=== PATIENT | male | born 1950 | race African-American/Black ===

== ENCOUNTER 2017-01-08 14:17 | Inpatient (IN) | payer MEDICAID ==
[~2017-01-08 14:17] MED LIST: ARGINAID POWDE1 EACH PO; CHOLESTYRAMIN4 G/PKT PO; CYANOCOBALAMIN SC; DIOVAN160 M1 PO; FERRO-TIME325 M1 PO; FLAGYL500 MG PO; H PO; HALOPERIDOL2 M1 PO; HYDRALAZINE HCL10 MG PO; HYDRALAZINE HCL25 MG PO; IMODIUM2 MG PO; ISOSORBIDE MONO30 M4 PO; ISOSORBIDE MONO60 M1 PO; LASIX20 M1 PO; LOMOTIL1 TA1 PO; NEURONTIN300 M1 PO; PRINIVIL40 MG PO; TENORMIN25 M1 PO; TYLENOL325 M2 PO; [UNRECOGNIZED DRUG - OTHER] PO; [UNRECOGNIZED DRUG - OTHER] PO; [UNRECOGNIZED DRUG - OTHER] PO
[2017-01-08] MEDS ORDERED: VIBRAMYCIN100 M1 PO (15:00)
[2017-01-08] MEDS ORDERED: LASIX80 M1 PO (15:01)
[2017-01-08] MEDS ORDERED: [UNRECOGNIZED DRUG - OTHER] PO (15:03)
[2017-01-08] MEDS ORDERED: BISCOLAX10 MG PR (15:04)
[2017-01-08] MEDS ORDERED: MILK OF MAGNESIA PO (15:05)
[2017-01-08] MEDS ORDERED: CYANOCOBAL1000 MCG/3 SC (15:06)
[2017-01-08 17:47] LABS: BASO % 0.1 % (0-2); EOS % 4.2 % (0-7); EOSINOPHIL ABSOLUTE COUNT 0.5 tho/cmm (0.0-0.7); HCT-HEMATOCRIT 32.2 % (36.0-53.5); HGB-HEMOGLOBIN 10.2 gm/dl (13.5-17.0); IMMATURE GRANULOCYTES ABSOLUTE 0.05 tho/cmm (0-0.03); IMMATURE GRANULOCYTES PERCENT 0.4 % (0-0.3); LYMPH % 12.8 % (20-45); LYMPH ABSOLUTE COUNT 1.6 tho/cmm (0.8-4.5); MCH (MEAN CORPUSCULAR HGB) 26.1 pg (28.0-32.0); MCHC MEAN CORPUSCULAR HGB CONC 31.7 % (32.0-36.0); MCV (MEAN CELL VOLUME) 82.4 fl (82.0-96.0); MONO % 6.9 % (0-12); MONOCYTE ABSOLUTE COUNT 0.9 tho/cmm (0.0-1.2); NEUTROPHIL ABSOLUTE COUNT 9.6 tho/cmm (1.6-8.0); NEUTROPHIL-AUTOMATED 9.6 tho/cmm (1.6-8.0); NEUTROPHILS % 75.6 % (40-80); PLATELET COUNT 276 tho/cmm (150-450); RED BLOOD COUNT 3.91 mil/cmm (4.40-5.70); RED CELL DISTRIBUTION WIDTH 15.3 % (12.4-16.4); WHITE BLOOD COUNT 12.7 tho/cmm (4.0-10.0)
[2017-01-08 18:05] LABS: ALB/GLOB RATIO 0.4 (0.8-2.0); ALBUMIN 2.4 g/dl (3.5-5.0); ALKALINE PHOSPHATASE 80 U/L (33-138); ALT/SGPT 19 U/L (12-78); ANION GAP 10 mmol/L (0-20); AST/SGOT 14 U/L (10-40); BILIRUBIN,TOTAL 0.5 mg/dl (0.0-1.5); BLOOD UREA NITROGEN 18 mg/dl (6-24); CALCIUM 8.3 mg/dl (8.5-10.5); CARBON DIOXIDE-VENOUS 28 mmol/L (22-32); CHLORIDE 105 mmol/l (96-110); CREATININE 1.13 mg/dl (0.60-1.30); GLUCOSE 111 mg/dL (70-110); POTASSIUM 3.3 mmol/L (3.7-5.1); SODIUM 140 mmol/L (135-145); eGFR VALUE FOR BLACK 77 mL/Min
[2017-01-08 18:26] LABS: PROCALCITONIN 0.08 ng/ml (0.05-0.09)
[2017-01-08 18:36] LABS: ESR-ERYTHROCYTE SED RATE 91 mm/hr (0-20)
[2017-01-09 06:18] LABS: ALB/GLOB RATIO 0.4 (0.8-2.0); ALBUMIN 2.1 g/dl (3.5-5.0); ALKALINE PHOSPHATASE 70 U/L (33-138); ALT/SGPT 15 U/L (12-78); ANION GAP 11 mmol/L (0-20); AST/SGOT 12 U/L (10-40); BILIRUBIN,TOTAL 0.3 mg/dl (0.0-1.5); BLOOD UREA NITROGEN 20 mg/dl (6-24); C-REACTIVE PROTEIN 18.2 mg/dl (0-0.9); CARBON DIOXIDE-VENOUS 29 mmol/L (22-32); CHLORIDE 105 mmol/l (96-110); GLUCOSE 109 mg/dL (70-110); MAGNESIUM 2.2 mg/dl (1.8-2.6); POTASSIUM 3.4 mmol/L (3.7-5.1); SODIUM 142 mmol/L (135-145); eGFR VALUE FOR BLACK 49 mL/Min
[2017-01-09 06:38] LABS: CREATININE 1.65 mg/dl (0.60-1.30)
[2017-01-09 06:39] LABS: PROCALCITONIN 0.17 ng/ml (0.05-0.09)
[2017-01-09 09:14] LABS: BASO % 0.2 % (0-2); EOS % 4.2 % (0-7); EOSINOPHIL ABSOLUTE COUNT 0.4 tho/cmm (0.0-0.7); HCT-HEMATOCRIT 30.5 % (36.0-53.5); HGB-HEMOGLOBIN 9.5 gm/dl (13.5-17.0); IMMATURE GRANULOCYTES ABSOLUTE 0.08 tho/cmm (0-0.03); IMMATURE GRANULOCYTES PERCENT 0.8 % (0-0.3); LYMPH % 16.3 % (20-45); LYMPH ABSOLUTE COUNT 1.7 tho/cmm (0.8-4.5); MCH (MEAN CORPUSCULAR HGB) 26.1 pg (28.0-32.0); MCHC MEAN CORPUSCULAR HGB CONC 31.1 % (32.0-36.0); MCV (MEAN CELL VOLUME) 83.8 fl (82.0-96.0); MEAN PLATELET VOLUME 11.1 cmc (9.4-12.4); MONO % 6.9 % (0-12); MONOCYTE ABSOLUTE COUNT 0.7 tho/cmm (0.0-1.2); NEUTROPHIL ABSOLUTE COUNT 7.4 tho/cmm (1.6-8.0); NEUTROPHIL-AUTOMATED 7.4 tho/cmm (1.6-8.0); NEUTROPHILS % 71.6 % (40-80); RED BLOOD COUNT 3.64 mil/cmm (4.40-5.70); RED CELL DISTRIBUTION WIDTH 15.6 % (12.4-16.4); WHITE BLOOD COUNT 10.3 tho/cmm (4.0-10.0)
[2017-01-09 09:57] LABS: ESR-ERYTHROCYTE SED RATE 80 mm/hr (0-20)
[2017-01-10 07:32] LABS: BASO % 0.2 % (0-2); EOSINOPHIL ABSOLUTE COUNT 0.5 tho/cmm (0.0-0.7); HCT-HEMATOCRIT 29.1 % (36.0-53.5); HGB-HEMOGLOBIN 8.9 gm/dl (13.5-17.0); IMMATURE GRANULOCYTES ABSOLUTE 0.04 tho/cmm (0-0.03); IMMATURE GRANULOCYTES PERCENT 0.4 % (0-0.3); LYMPH % 14.6 % (20-45); LYMPH ABSOLUTE COUNT 1.3 tho/cmm (0.8-4.5); MCH (MEAN CORPUSCULAR HGB) 25.7 pg (28.0-32.0); MCHC MEAN CORPUSCULAR HGB CONC 30.6 % (32.0-36.0); MCV (MEAN CELL VOLUME) 84.1 fl (82.0-96.0); MEAN PLATELET VOLUME 10.4 cmc (9.4-12.4); MONO % 10.3 % (0-12); MONOCYTE ABSOLUTE COUNT 0.9 tho/cmm (0.0-1.2); NEUTROPHIL ABSOLUTE COUNT 6.1 tho/cmm (1.6-8.0); NEUTROPHIL-AUTOMATED 6.1 tho/cmm (1.6-8.0); NEUTROPHILS % 68.5 % (40-80); RED BLOOD COUNT 3.46 mil/cmm (4.40-5.70); RED CELL DISTRIBUTION WIDTH 15.5 % (12.4-16.4); WHITE BLOOD COUNT 8.9 tho/cmm (4.0-10.0)
[2017-01-10 07:43] LABS: ANION GAP 8 mmol/L (0-20); BLOOD UREA NITROGEN 19 mg/dl (6-24); C-REACTIVE PROTEIN 17.9 mg/dl (0-0.9); CALCIUM 8.1 mg/dl (8.5-10.5); CARBON DIOXIDE-VENOUS 30 mmol/L (22-32); CHLORIDE 109 mmol/l (96-110); CREATININE 1.39 mg/dl (0.60-1.30); GLUCOSE 111 mg/dL (70-110); POTASSIUM 3.4 mmol/L (3.7-5.1); SODIUM 144 mmol/L (135-145); eGFR VALUE FOR BLACK 60 mL/Min
[2017-01-10 08:37] LABS: ESR-ERYTHROCYTE SED RATE 100 mm/hr (0-20)
[2017-01-11 06:36] LABS: BASO % 0.2 % (0-2); EOS % 6.8 % (0-7); EOSINOPHIL ABSOLUTE COUNT 0.6 tho/cmm (0.0-0.7); HCT-HEMATOCRIT 28.5 % (36.0-53.5); HGB-HEMOGLOBIN 8.7 gm/dl (13.5-17.0); IMMATURE GRANULOCYTES ABSOLUTE 0.06 tho/cmm (0-0.03); IMMATURE GRANULOCYTES PERCENT 0.7 % (0-0.3); LYMPH ABSOLUTE COUNT 1.2 tho/cmm (0.8-4.5); MCH (MEAN CORPUSCULAR HGB) 25.9 pg (28.0-32.0); MCHC MEAN CORPUSCULAR HGB CONC 30.5 % (32.0-36.0); MCV (MEAN CELL VOLUME) 84.8 fl (82.0-96.0); MEAN PLATELET VOLUME 8.9 cmc (9.4-12.4); MONO % 9.4 % (0-12); MONOCYTE ABSOLUTE COUNT 0.9 tho/cmm (0.0-1.2); NEUTROPHIL ABSOLUTE COUNT 6.4 tho/cmm (1.6-8.0); NEUTROPHIL-AUTOMATED 6.4 tho/cmm (1.6-8.0); NEUTROPHILS % 69.9 % (40-80); RED BLOOD COUNT 3.36 mil/cmm (4.40-5.70); RED CELL DISTRIBUTION WIDTH 15.6 % (12.4-16.4); WHITE BLOOD COUNT 9.2 tho/cmm (4.0-10.0)
[2017-01-11 06:37] LABS: PLATELET COUNT 263 tho/cmm (150-450)
[2017-01-11 06:43] LABS: ANION GAP 17 mmol/L (0-20); BLOOD UREA NITROGEN 15 mg/dl (6-24); CALCIUM 7.9 mg/dl (8.5-10.5); CARBON DIOXIDE-VENOUS 28 mmol/L (22-32); CHLORIDE 101 mmol/l (96-110); CREATININE 1.37 mg/dl (0.60-1.30); POTASSIUM 3.6 mmol/L (3.7-5.1); SODIUM 142 mmol/L (135-145); eGFR VALUE FOR BLACK 61 mL/Min
[2017-01-11 07:03] LABS: GLUCOSE 212 mg/dL (70-110)
[2017-01-11 07:19] LABS: ESR-ERYTHROCYTE SED RATE 121 mm/hr (0-20)
[2017-01-11 07:21] LABS: PROCALCITONIN 0.06 ng/ml (0.05-0.09)
[2017-01-12 03:40] LABS: BASO % 0.3 % (0-2); EOS % 7.8 % (0-7); EOSINOPHIL ABSOLUTE COUNT 0.7 tho/cmm (0.0-0.7); HCT-HEMATOCRIT 29.3 % (36.0-53.5); HGB-HEMOGLOBIN 9.1 gm/dl (13.5-17.0); IMMATURE GRANULOCYTES ABSOLUTE 0.09 tho/cmm (0-0.03); LYMPH % 17.4 % (20-45); LYMPH ABSOLUTE COUNT 1.6 tho/cmm (0.8-4.5); MCH (MEAN CORPUSCULAR HGB) 26.1 pg (28.0-32.0); MCHC MEAN CORPUSCULAR HGB CONC 31.1 % (32.0-36.0); MEAN PLATELET VOLUME 8.8 cmc (9.4-12.4); MONO % 8.5 % (0-12); MONOCYTE ABSOLUTE COUNT 0.8 tho/cmm (0.0-1.2); PLATELET COUNT 263 tho/cmm (150-450); RED BLOOD COUNT 3.49 mil/cmm (4.40-5.70); RED CELL DISTRIBUTION WIDTH 15.3 % (12.4-16.4); WHITE BLOOD COUNT 9.2 tho/cmm (4.0-10.0)
[2017-01-12 04:01] LABS: IRON 26 ug/dl (49-181); IRON BINDING CAPACITY 134 ug/dl (250-450)
[2017-01-12 04:08] LABS: ALBUMIN 2.1 g/dl (3.5-5.0); ANION GAP 12 mmol/L (0-20); BLOOD UREA NITROGEN 13 mg/dl (6-24); C-REACTIVE PROTEIN 12.5 mg/dl (0-0.9); CALCIUM 7.9 mg/dl (8.5-10.5); CARBON DIOXIDE-VENOUS 31 mmol/L (22-32); CHLORIDE 105 mmol/l (96-110); FERRITIN 577 ng/ml (22-388); GLUCOSE 133 mg/dL (70-110); PHOSPHOROUS 2.6 mg/dl (2.5-4.9); POTASSIUM 3.5 mmol/L (3.7-5.1); PREALBUMIN 9.1 mg/dl (20.0-40.0); SODIUM 144 mmol/L (135-145); eGFR VALUE FOR BLACK 59 mL/Min
[2017-01-12 04:28] LABS: TSH-THYROID STIMULATING HORM. 1.58 uIU/ml (0.40-3.80)
[2017-01-12 04:42] LABS: ESR-ERYTHROCYTE SED RATE >140 mm/hr (0-20)
[2017-01-13 05:54] LABS: BASO % 0.4 % (0-2); EOS % 6.8 % (0-7); EOSINOPHIL ABSOLUTE COUNT 0.7 tho/cmm (0.0-0.7); HCT-HEMATOCRIT 29.7 % (36.0-53.5); HGB-HEMOGLOBIN 9.3 gm/dl (13.5-17.0); LYMPH % 16.1 % (20-45); LYMPH ABSOLUTE COUNT 1.7 tho/cmm (0.8-4.5); MCH (MEAN CORPUSCULAR HGB) 25.8 pg (28.0-32.0); MCHC MEAN CORPUSCULAR HGB CONC 31.3 % (32.0-36.0); MCV (MEAN CELL VOLUME) 82.5 fl (82.0-96.0); MONO % 9.3 % (0-12); NEUTROPHIL ABSOLUTE COUNT 6.9 tho/cmm (1.6-8.0); NEUTROPHIL-AUTOMATED 6.9 tho/cmm (1.6-8.0); NEUTROPHILS % 66.4 % (40-80); PLATELET COUNT 286 tho/cmm (150-450); RED CELL DISTRIBUTION WIDTH 15.2 % (12.4-16.4); WHITE BLOOD COUNT 10.4 tho/cmm (4.0-10.0)
[2017-01-13 06:09] LABS: ANION GAP 10 mmol/L (0-20); BLOOD UREA NITROGEN 12 mg/dl (6-24); C-REACTIVE PROTEIN 9.6 mg/dl (0-0.9); CALCIUM 8.6 mg/dl (8.5-10.5); CARBON DIOXIDE-VENOUS 32 mmol/L (22-32); CHLORIDE 103 mmol/l (96-110); GLUCOSE 108 mg/dL (70-110); MAGNESIUM 2.1 mg/dl (1.8-2.6); POTASSIUM 3.7 mmol/L (3.7-5.1); SODIUM 141 mmol/L (135-145); eGFR VALUE FOR BLACK 65 mL/Min
[2017-01-13 06:34] LABS: ESR-ERYTHROCYTE SED RATE 33 mm/hr (0-20)
[2017-01-14 05:55] LABS: BASO % 0.4 % (0-2); EOS % 7.6 % (0-7); EOSINOPHIL ABSOLUTE COUNT 0.7 tho/cmm (0.0-0.7); HCT-HEMATOCRIT 29.9 % (36.0-53.5); HGB-HEMOGLOBIN 9.4 gm/dl (13.5-17.0); LYMPH % 16.7 % (20-45); LYMPH ABSOLUTE COUNT 1.6 tho/cmm (0.8-4.5); MCH (MEAN CORPUSCULAR HGB) 26.2 pg (28.0-32.0); MCHC MEAN CORPUSCULAR HGB CONC 31.4 % (32.0-36.0); MCV (MEAN CELL VOLUME) 83.3 fl (82.0-96.0); MEAN PLATELET VOLUME 8.6 cmc (9.4-12.4); MONO % 9.2 % (0-12); MONOCYTE ABSOLUTE COUNT 0.9 tho/cmm (0.0-1.2); NEUTROPHIL ABSOLUTE COUNT 6.3 tho/cmm (1.6-8.0); NEUTROPHIL-AUTOMATED 6.3 tho/cmm (1.6-8.0); NEUTROPHILS % 65.1 % (40-80); PLATELET COUNT 297 tho/cmm (150-450); RED BLOOD COUNT 3.59 mil/cmm (4.40-5.70); RED CELL DISTRIBUTION WIDTH 15.3 % (12.4-16.4); WHITE BLOOD COUNT 9.7 tho/cmm (4.0-10.0)
[2017-01-14 06:11] LABS: ANION GAP 10 mmol/L (0-20); BLOOD UREA NITROGEN 11 mg/dl (6-24); C-REACTIVE PROTEIN 8.7 mg/dl (0-0.9); CALCIUM 8.6 mg/dl (8.5-10.5); CARBON DIOXIDE-VENOUS 32 mmol/L (22-32); CHLORIDE 100 mmol/l (96-110); CREATININE 1.18 mg/dl (0.60-1.30); GLUCOSE 127 mg/dL (70-110); POTASSIUM 3.3 mmol/L (3.7-5.1); SODIUM 139 mmol/L (135-145); eGFR VALUE FOR BLACK 73 mL/Min
[2017-01-14 06:41] LABS: ESR-ERYTHROCYTE SED RATE 104 mm/hr (0-20)
[2017-01-15 06:20] LABS: BASO % 0.5 % (0-2); BASO ABSOLUTE COUNT 0.1 tho/cmm (0.0-0.2); EOS % 7.4 % (0-7); EOSINOPHIL ABSOLUTE COUNT 0.8 tho/cmm (0.0-0.7); HCT-HEMATOCRIT 29.3 % (36.0-53.5); HGB-HEMOGLOBIN 9.3 gm/dl (13.5-17.0); IMMATURE GRANULOCYTES ABSOLUTE 0.11 tho/cmm (0-0.03); LYMPH % 18.7 % (20-45); MCH (MEAN CORPUSCULAR HGB) 26.1 pg (28.0-32.0); MCHC MEAN CORPUSCULAR HGB CONC 31.7 % (32.0-36.0); MCV (MEAN CELL VOLUME) 82.3 fl (82.0-96.0); MEAN PLATELET VOLUME 8.6 cmc (9.4-12.4); MONO % 8.1 % (0-12); MONOCYTE ABSOLUTE COUNT 0.9 tho/cmm (0.0-1.2); NEUTROPHIL ABSOLUTE COUNT 6.9 tho/cmm (1.6-8.0); NEUTROPHIL-AUTOMATED 6.9 tho/cmm (1.6-8.0); NEUTROPHILS % 64.3 % (40-80); PLATELET COUNT 304 tho/cmm (150-450); RED BLOOD COUNT 3.56 mil/cmm (4.40-5.70); RED CELL DISTRIBUTION WIDTH 15.3 % (12.4-16.4); WHITE BLOOD COUNT 10.7 tho/cmm (4.0-10.0)
[2017-01-15 06:27] LABS: ANION GAP 11 mmol/L (0-20); BLOOD UREA NITROGEN 12 mg/dl (6-24); C-REACTIVE PROTEIN 8.2 mg/dl (0-0.9); CALCIUM 8.6 mg/dl (8.5-10.5); CARBON DIOXIDE-VENOUS 31 mmol/L (22-32); CHLORIDE 102 mmol/l (96-110); CREATININE 1.43 mg/dl (0.60-1.30); GLUCOSE 103 mg/dL (70-110); MAGNESIUM 2.3 mg/dl (1.8-2.6); POTASSIUM 3.7 mmol/L (3.7-5.1); SODIUM 140 mmol/L (135-145); eGFR VALUE FOR BLACK 58 mL/Min
[2017-01-15 08:39] LABS: ESR-ERYTHROCYTE SED RATE 123 mm/hr (0-20)
[2017-01-16 04:34] LABS: BASO % 0.4 % (0-2); EOS % 6.6 % (0-7); EOSINOPHIL ABSOLUTE COUNT 0.7 tho/cmm (0.0-0.7); HCT-HEMATOCRIT 30.2 % (36.0-53.5); HGB-HEMOGLOBIN 9.5 gm/dl (13.5-17.0); IMMATURE GRANULOCYTES ABSOLUTE 0.11 tho/cmm (0-0.03); LYMPH % 18.3 % (20-45); MCHC MEAN CORPUSCULAR HGB CONC 31.5 % (32.0-36.0); MCV (MEAN CELL VOLUME) 82.7 fl (82.0-96.0); MEAN PLATELET VOLUME 8.7 cmc (9.4-12.4); MONO % 7.5 % (0-12); MONOCYTE ABSOLUTE COUNT 0.8 tho/cmm (0.0-1.2); NEUTROPHIL ABSOLUTE COUNT 7.3 tho/cmm (1.6-8.0); NEUTROPHIL-AUTOMATED 7.3 tho/cmm (1.6-8.0); NEUTROPHILS % 66.2 % (40-80); PLATELET COUNT 298 tho/cmm (150-450); RED BLOOD COUNT 3.65 mil/cmm (4.40-5.70); RED CELL DISTRIBUTION WIDTH 15.4 % (12.4-16.4)
[2017-01-16 04:38] LABS: ALBUMIN 2.3 g/dl (3.5-5.0); ANION GAP 10 mmol/L (0-20); BLOOD UREA NITROGEN 14 mg/dl (6-24); C-REACTIVE PROTEIN 6.9 mg/dl (0-0.9); CALCIUM 8.3 mg/dl (8.5-10.5); CARBON DIOXIDE-VENOUS 30 mmol/L (22-32); CHLORIDE 102 mmol/l (96-110); GLUCOSE 108 mg/dL (70-110); PHOSPHOROUS 3.7 mg/dl (2.5-4.9); POTASSIUM 3.4 mmol/L (3.7-5.1); SODIUM 139 mmol/L (135-145); eGFR VALUE FOR BLACK 59 mL/Min
[2017-01-16 04:59] LABS: ESR-ERYTHROCYTE SED RATE 117 mm/hr (0-20)
[2017-01-31] MEDS ORDERED: PROTONIX40 M2 PO (11:18)
[2017-01-31] MEDS ORDERED: GLIPIZIDE5 M2 PO (11:19)
[2017-02-21] MEDS ORDERED: KEFLEX500 M4 PO (08:18)
[2017-04-04] MEDS ORDERED: MULTI VITAMIN1 EAC2 PO (09:15)
[2017-04-25] MEDS ORDERED: LASIX80 M1 PO (08:43)
== END 2017-01-16 15:35 | DRG 300 ==
LOC: 5WE 14:17
PROVIDERS: Internal Medicine; Internal Medicine Infectious Disease; Physician Assistant; ADMIT Hospitalist
PROC: 02HV33Z Insertion of Infusion Device into Superior Vena Cava, Percutaneous Approach (ICD-10-PCS; principal; 2017-01-08)
DX: I83.008 Varicose veins of unspecified lower extremity with ulcer other part of lower leg (principal); N17.9 Acute kidney failure, unspecified; L89.159 Pressure ulcer of sacral region, unspecified stage; E44.0 Moderate protein-calorie malnutrition; I13.0 Hypertensive heart and chronic kidney disease with heart failure and stage 1 through stage 4 chronic kidney disease, or unspecified chronic kidney disease; I95.9 Hypotension, unspecified; E11.22 Type 2 diabetes mellitus with diabetic chronic kidney disease; I50.42 Chronic combined systolic (congestive) and diastolic (congestive) heart failure; Z68.43 Body mass index [BMI] 50.0-59.9, adult; L97.819 Non-pressure chronic ulcer of other part of right lower leg with unspecified severity; L97.829 Non-pressure chronic ulcer of other part of left lower leg with unspecified severity; E87.6 Hypokalemia; D50.9 Iron deficiency anemia, unspecified; D63.1 Anemia in chronic kidney disease; N18.3 Chronic kidney disease, stage 3 (moderate); F29 Unspecified psychosis not due to a substance or known physiological condition; E66.01 Morbid (severe) obesity due to excess calories; I73.9 Peripheral vascular disease, unspecified; M19.90 Unspecified osteoarthritis, unspecified site; Z66 Do not resuscitate; Z87.891 Personal history of nicotine dependence; E88.09 Other disorders of plasma-protein metabolism, not elsewhere classified; B95.61 Methicillin susceptible Staphylococcus aureus infection as the cause of diseases classified elsewhere
CPT/HCPCS: C1751; J0295; J0696; J1650; J1940; J2543; J3370; J7030; J7050